=== PATIENT | female | born 1950 | race Caucasian/White ===

== ENCOUNTER → 2016-06-01 | Outpatient (CLI) | payer OTHER ==
[~2016-06-01] MED LIST: ALPR-411 PO; ANAS1TAB19 PO; CHOL100010 PO; CLB200 PO; Calcium PO; DOXE10CA PO; METO25TA3 PO; MULT-845 PO; MULT60CA PO; PROP20TA67 PO; UMEC1AER INH; ZOLP6.252 PO
[2016-06-01 15:01] LABS: ALT/SGPT 21 U/L (12-78); AST/SGOT 11 U/L (15-37); BLOOD UREA NITROGEN 19 mg/dl (7-18); BUN/CREATININE RATIO 17.7 (10-20); CALCIUM 9.6 mg/dl (8.5-10.1); CARBON DIOXIDE 25 mmol/L (21-32); CHLORIDE 107 mmol/L (98-107); GLUCOSE 125 mg/dl (70-99); POTASSIUM 3.9 mmol/L (3.5-5.1); SODIUM 143 mmol/L (136-145)
[2016-06-01 15:04] LABS: ALB/GLOB RATIO 1.2 (0.9-2); ALKALINE PHOSPHATASE 64 U/L (45-117)
--- NOTE | 2016-06-06 08:19 | CODING QUERY NO DIAGNOSIS ---
: 1950 TREATMENT RENDERED WITHOUT A DIAGNOSIS To promote full compliance with coding requirements relating to patient care, physician participation is requested in all cases of medical biller coder uncertainty. Please assist us with providing a diagnosis/symptom for the test(s) below: A diagnosis/symptom was not documented on your Order. A valid diagnosis/symptom is required to bill all insurances. Please remember that we are unable to code a diagnosis of rule out, probable, possible, questionable, or suspected. Tests that require a diagnosis: DOS: 06/01/16 * Comprehensive Metabolic Panel DIAGNOSIS: Provider Signature: Date: Thank you Sherlyn Mueller Health Information Management Once completed, please kindly fax back to [phone] For questions please call [phone]
== END | disposition home or self-care (01) ==
LOC: C.LAB1850 13:00
PROVIDERS: ATTEND Internal Medicine Hematology & Oncology
DX: C50.511 Malignant neoplasm of lower-outer quadrant of right female breast (principal)

== ENCOUNTER → 2016-10-26 | Outpatient (CLI) | payer OTHER ==
[2016-10-26 10:41] LABS: BASO % 0.3 %; BASO ABS # 0.03 K/uL (0-0.2); COMPLETE YES; EOS % 1.8 %; HEMATOCRIT 43.3 % (37-47); IG% 0.3 %; LYMPH % 11.7 %; LYMPH ABS # 1.34 K/uL (1.2-3.4); MEAN CELL VOLUME 90.8 fL (80-100); MEAN CORPUSCULAR HEMOGLOBIN 30.4 pg (25-34); MEAN CORPUSCULAR HGB CONC 33.5 g/dl (32-36); MEAN PLATELET VOLUME 9.9 fL (7.4-10.4); MONO % 5.5 %; NEUT % 80.4 %; PLATELET COUNT 203 K/uL (130-400); RED BLOOD COUNT 4.77 M/uL (4.2-5.4); WHITE BLOOD COUNT 11.45 K/uL (4.8-10.8)
[2016-10-26 10:49] LABS: URINE APPEARANCE CLEAR (CLEAR); URINE BILIRUBIN NEG (NEG); URINE COLOR DK YELLOW; URINE EPITHELIAL CELL AUTO >30 /lpf (0-5); URINE NITRITE NEG (NEG); URINE SPECIFIC GRAVITY 1.021 (1.000-1.030); UROBILINOGEN NEG (NEG)
[2016-10-26 10:51] LABS: ALT/SGPT 21 U/L (12-78); BLOOD UREA NITROGEN 12 mg/dl (7-18); BUN/CREATININE RATIO 12.7 (10-20); CARBON DIOXIDE 30 mmol/L (21-32); CHLORIDE 106 mmol/L (98-107); CHOLESTEROL 177 mg/dl (0-200); CREATININE 0.92 mg/dl (0.60-1.20); GLUCOSE 114 mg/dl (70-99); MANUAL MICROSCOPIC REQUIRED? NO; POTASSIUM 4.2 mmol/L (3.5-5.1); REVIEW REQ? YES; SODIUM 144 mmol/L (136-145); TRIGLYCERIDES 93 mg/dl (0-150); VERY LOW DENSITY LIPOPROT CALC 19 mg/dl
[2016-10-26 11:06] LABS: ALKALINE PHOSPHATASE 81 U/L (45-117); AST/SGOT 16 U/L (15-37); CALCIUM 9.1 mg/dl (8.5-10.1); CHOLESTEROL/HDL RATIO 3.8; HDL CHOLESTEROL 46 mg/dl; LDL CHOLESTEROL CALCULATED 112 mg/dl
--- NOTE | 2016-11-02 10:06 | CODING QUERY MEDICAL NECESSITY ---
CQSUPPORTING DIAGNOSIS NEEDED A supporting diagnosis is required for the test/procedure performed on this patient in order for us to be reimbursed by the patient's insurance. Please provide a supporting diagnosis for the following test/procedure listed below next to the test name along with your signature. *If there is no additional diagnosis for this patient that would support the following test/procedure please document that below next to the test/procedure. Test(s)/Procedure(s) that require a supporting diagnosis: DOS 10/26/16 BLOOD COUNT Provider Signature: Date: Thank you Reyna Hartmann [facility] Information Management Once completed, please kindly fax back to [phone] For questions please call [phone]
== END | disposition home or self-care (01) ==
LOC: C.LAB1850 08:57
PROVIDERS: ATTEND Internal Medicine Pulmonary Disease
DX: Z00.00 Encounter for general adult medical examination without abnormal findings (principal); J44.9 Chronic obstructive pulmonary disease, unspecified; C50.919 Malignant neoplasm of unspecified site of unspecified female breast

== ENCOUNTER → 2016-12-15 | Outpatient (CLI) | payer OTHER ==
[2016-12-15 13:07] VITALS: BP 158/67; PULSE 73; TEMP 36.7; O2SAT 93
--- NOTE | 2016-12-15 17:19 | Radiation Oncology Follow-Up ---
Radiation Oncology Follow-Up Date of Visit Dec 15, 2016. Reason For Visit Annual follow-up Radiation Completion Date 06/02/14 Diagnosis (1) Breast cancer Status: Resolved Onset Date: 04/09/2014 Histology Subtype: ductal Stage: l (A) Permanent Comment: Abnormal right breast mammogram Status post ultrasound-guided biopsy right breast 03/28/2014 revealing infiltrating ductal carcinoma Estrogen receptor positive, progesterone receptor positive, HER-2/rivera negative status post lumpectomy and sentinel lymph node biopsy 04/09/2014 showing invasive ductal carcinoma stage [id number] Oncotype DX score of 20 Status post completion of radiation therapy utilizing accelerated partial breast treatment completed 06/02/2014 received 3850 cGy Last Edited By: Danita De La Cruz on Dec 19, 2014 15:21 History of Present Illness Ms. Dominguez is a 66-year-old female whose mother was diagnosed with breast cancer in her late 60s.. She is therefore been followed closely with annual digital screening mammograms. On 04/2013 he had a benign mammogram with recommendation of repeat in one year. On on 02/03/2014 she underwent a repeat bilateral digital screening mammogram. This showed a developing 7 mm focal asymmetry with irregular margins in the lower outer posterior right breast near the fat-glandular interface. Further evaluation with spot compression views and ultrasound was recommended. There were stable post biopsy changes in the upper outer posterior right breast with ribbon-shaped metallic biopsy marker remaining in place. The patient had undergone a previous ultrasound core right breast biopsy at the 10 o'clock position on 07/28/2006. This revealed benign breast tissue. Case: [id number]. On 03/24/2014 patient underwent a unilateral right digital diagnostic mammogram and targeted right ultrasound. In the right lower outer quadrant there is an irregular mass with spiculated an indistinct margins which measure approximately 1.0 cm in size with no associated calcifications seen. Targeted ultrasound performed on the right lower outer quadrant at the 7 o'clock position of the right breast 4 cm from the nipple there was an irregular hypoechoic mass with non-circumscribed margins and posterior acoustic shadowing measuring 0.6 x 0.5 x 0.7 mm. It was felt to correlate well with the mammographic abnormality. Targeted ultrasound of the right axilla demonstrated morphologically normal right axillary lymph nodes without evidence of axillary lymphadenopathy. This was given a BI-RADS Category 5 highly suspicious for malignancy and a biopsy was recommended. On 03/28/2014 the patient underwent an ultrasound-guided biopsy of the right breast mass with biopsy marker placement. This tissue revealed an infiltrating ductal carcinoma [place] grade 1 of 3. The tumor measured up to 0.7 cm on core biopsy. There was no DCIS or LCIS identified. There was no lymphovascular invasion identified. Estrogen receptors were positive (90%, strong). Progesterone receptors were positive (> 90%, strong). HER-2/rivera overexpression was negative (1+). The cells were also tested for HER-2 /rivera amplification by FISH and were negative. Case: [id number]. Patient was seen by Dr. Joe Altamirano who discussed treatment options with the patient. She opted for breast conserving therapy. Therefore on 04/09/2014 patient underwent a right breast lumpectomy and right sentinel lymph node biopsy. The frozen section of the sentinel node was negative for metastatic carcinoma. The final diagnosis was also negative for metastatic carcinoma on routine sections and immunohistochemical stains for cytokeratin. The lumpectomy specimen revealed invasive ductal carcinoma. The tumor measured 0.8 x 0.8 x 0.6 cm. The histologic grade was a [place] rate 1 of 3. No DCIS or LCIS was identified. The margins were uninvolved by invasive carcinoma. Invasive carcinoma extended to within 1 mm of the medial margin and 2 mm of the lateral margin. En face superficial, deep, superior and inferior margins were all negative for DCIS and invasive carcinoma. Additional medial and lateral tissues were excised and both were negative on en face margins for DCIS or invasive carcinomas. All margins were therefore negative. Case: [id number]. The final pathologic stage is therefore pT1b pNo(i-) ER positive ID positive HER-2/rivera negative. The patient is recovering well from her surgery. She is scheduled to see Dr. Altamirano this afternoon for removal of her stitches. She is scheduled to see Dr. Abdulaziz Zabala for medical oncology evaluation of systemic therapy on Monday, April 21. We were asked to see the patient in referral for evaluation and discussion of the role of adjuvant radiation.[address] simulation was found to be a candidate for accelerated partial breast treatment. Treatment was completed in 06/02/2014 received 3850 cGy Interim History She's been doing well over this past year. She has noted no masses and no changes of the lingula. She's had no swelling of her arm. She is up-to-date on mammography. She does have an area of tenderness in the lower outer portion of the breast that is noted if she tries to lay on this side at night. Otherwise this does not cause any discomfort. She had a mammogram 04/05/2016. This was stable with no mammographic evidence of malignancy. BI-RADS Category 2. Allergies Coded Allergies: Penicillins (Verified Allergy, Severe, throat swelling, SOB, 12/23/14) Adhesives (Verified Allergy, Unknown, local skin irritation, 12/23/14) Lactose (Verified Allergy, Unknown, diarrhea, 12/23/14) Home Medications Scheduled Celecoxib (Celebrex *), 200 MG PO QPM Cholecalciferol (Vitamin D), 1,000 INTER.UNIT PO DAILY Metoprolol Succ (Toprol Xl) (Toprol-Xl), 12.5 MG PO BID Multiple Vitamins W/ Minerals (Centrum Silver Adult 50+), 800 MG PO evening Multiple Vitamins W/ Minerals (Preservision Areds 2), 1 CAP PO BID Propranolol (Inderal), 40 MG PO BID PRN Zolpidem Tartrate (Ambien Cr), 1 TAB PO HS [Calcium], 600 MG PO QAM Scheduled PRN Alprazolam (Xanax), 0.5 MG PO DAILY PRN for Anxiety Umeclidinium-Vilanterol (Anoro Ellipta 62.5-25 Mcg/INH), INH DAILY PRN for Shortness of Breath Review of Systems Gastrointestinal: Symptoms: WNL Oral: Symptoms: No Problems Other Oral Symptoms: Just getting over sinus infection with sore throat - on zpack Respiratory: Symptoms: WNL Respiratory Comments: Just getting over sinus infection with sore throat - on zpack Urinary: Symptoms: WNL Skin: Symptoms: No Problems Other Skin Symptoms: Right Breast is sore at times when sleeping on it Breast: Right Upper Arm Measurement: 30.6 Right Mid Arm Measurement: 24.8 Right Wrist Measurement: 16.4 Left Upper Arm Measurement: 31.0 Left Mid Arm Measurement: 23.5 Left Wrist Measurement: 16.4 Arm Dominence: Right Physical Exam Vital Signs Date Time Temp Pulse Resp B/P (MAP) Pulse Ox O2 Delivery O2 Flow Rate FiO2 12/15/16 13:07 36.7 73 16 158/67 93 Fatigue: None General Appearance: no apparent distress Eyes: normal inspection, EOMI ENT: normal ENT inspection, hearing grossly normal Neck: no adenopathy, thyroid normal Respiratory/Chest: lungs clear, no respiratory distress, no accessory muscle use Breast: Breast examination reveals well-healed incisions of the right breast. There are no masses or tenderness no axillary adenopathy. There are fibrous changes in the area of the incision. There is slight telangiectasia. Using the [place] score cosmesis she has a good outcome. The left breast showed no masses or tenderness and no axillary adenopathy. Cardiovascular: regular rate, rhythm, no gallop, no murmur Neurologic/Psychiatric: no motor/sensory deficits, alert, normal mood/affect Skin: warm/dry Laboratory Studies Test 10/26/16 09:01 12/15/16 13:41 White Blood Count 11.45 K/uL (4.8-10.8) 10.08 K/uL (4.8-10.8) Red Blood Count 4.77 M/uL (4.2-5.4) 4.62 M/uL (4.2-5.4) Hemoglobin 14.5 g/dL (12.0-16.0) 14.3 g/dL (12.0-16.0) Hematocrit 43.3 % (37-47) 41.5 % (37-47) Mean Corpuscular Volume 90.8 fL (80-100) 89.8 fL (80-100) Mean Corpuscular Hemoglobin 30.4 pg (25-34) 31.0 pg (25-34) Mean Corpuscular Hemoglobin Concent 33.5 g/dl (32-36) 34.5 g/dl (32-36) Platelet Count 203 K/uL (130-400) 199 K/uL (130-400) Mean Platelet Volume 9.9 fL (7.4-10.4) 9.3 fL (7.4-10.4) Neutrophils (%) (Auto) 80.4 % 70.0 % Lymphocytes (%) (Auto) 11.7 % 20.1 % Monocytes (%) (Auto) 5.5 % 5.8 % Eosinophils (%) (Auto) 1.8 % 3.2 % Basophils (%) (Auto) 0.3 % 0.4 % Neutrophils # (Auto) 9.21 K/uL (1.4-6.5) 7.06 K/uL (1.4-6.5) Lymphocytes # (Auto) 1.34 K/uL (1.2-3.4) 2.03 K/uL (1.2-3.4) Monocytes # (Auto) 0.63 K/uL (0.11-0.59) 0.58 K/uL (0.11-0.59) Eosinophils # (Auto) 0.21 K/uL (0-0.5) 0.32 K/uL (0-0.5) Basophils # (Auto) 0.03 K/uL (0-0.2) 0.04 K/uL (0-0.2) RDW Standard Deviation 41.8 fL (36.4-46.3) 41.3 fL (36.4-46.3) RDW Coefficient of Variation 12.6 % (11.5-14.5) 12.7 % (11.5-14.5) Immature Granulocyte % (Auto) 0.3 % 0.5 % Immature Granulocyte # (Auto) 0.03 K/uL (0.00-0.02) 0.05 K/uL (0.00-0.02) Urine Color DK YELLOW Urine Appearance CLEAR (CLEAR) Urine pH 8.0 (4.5-7.5) Urine Specific [place] 1.021 (1.000-1.030) Urine Protein NEG (NEG) Urine Glucose (UA) NEG (NEG) Urine Ketones TRACE (NEG) Urine Occult Blood NEG (NEG) Urine Nitrite NEG (NEG) Urine Bilirubin NEG (NEG) Urine Urobilinogen NEG (NEG) Urine Leukocyte Esterase TRACE (NEG) Urine WBC (Auto) 1-5 /hpf (0-5) Urine RBC (Auto) 10-30 /hpf (0-4) Urine Hyaline Casts (Auto) 5-10 /lpf (0-5) Urine Epithelial Cells (Auto) >30 /lpf (0-5) Urine Bacteria (Auto) NEG (NEG) Urine Renal Epithelial Cells 0-5 /lpf (0-5) Sodium Level 144 mmol/L (136-145) 141 mmol/L (136-145) Potassium Level 4.2 mmol/L (3.5-5.1) 3.7 mmol/L (3.5-5.1) Chloride Level 106 mmol/L (98-107) 103 mmol/L (98-107) Carbon Dioxide Level 30 mmol/L (21-32) 30 mmol/L (21-32) Anion Gap 8.0 mmol/L (3-11) 8.0 mmol/L (3-11) Blood Urea Nitrogen 12 mg/dl (7-18) 12 mg/dl (7-18) Creatinine 0.92 mg/dl (0.60-1.20) 1.00 mg/dl (0.60-1.20) Estimated GFR () 75.2 67.5 Estimated GFR (Non- 64.9 58.3 BUN/Creatinine Ratio 12.7 (10-20) 12.3 (10-20) Random Glucose 114 mg/dl (70-99) 120 mg/dl (70-99) Calcium Level 9.1 mg/dl (8.5-10.1) 9.3 mg/dl (8.5-10.1) Total Bilirubin 0.7 mg/dl (0.2-1) 0.4 mg/dl (0.2-1) Aspartate Amino Transferase (AST) 16 U/L (15-37) 15 U/L (15-37) Alanine Aminotransferase (ALT) 21 U/L (12-78) 19 U/L (12-78) Alkaline Phosphatase 81 U/L (45-117) 71 U/L (45-117) Total Protein 7.2 gm/dl (6.4-8.2) 7.1 gm/dl (6.4-8.2) Albumin 3.6 gm/dl (3.4-5.0) 3.5 gm/dl (3.4-5.0) Globulin 3.6 gm/dl (2.5-4.0) 3.6 gm/dl (2.5-4.0) Albumin/Globulin Ratio 1.0 (0.9-2) 1.0 (0.9-2) Triglycerides Level 93 mg/dl (0-150) Cholesterol Level 177 mg/dl (0-200) HDL Cholesterol 46 mg/dl LDL Cholesterol, Calculated 112 mg/dl VLDL Cholesterol, Calculated 19 mg/dl Cholesterol/HDL Ratio 3.8 Thyroid Stimulating Hormone (TSH) 1.100 uIu/ml (0.300-4.500) Est Creatinine Clear Calc Drug Dose 50.6 ml/min 25-Hydroxy Vitamin D Total 39.0 ng/ml (30-100) Additional Studies Patient: TIGIST DOMINGUE[facility] Rec: [id number] Address1: [address] Address2: Acct ID: [id number] Date: 1950 Sex: F Ref Phy: Att Phy: Viraj Peck M.D. Debbie Phy: iVraj Ryan M.D. Inter Phy: Rylie Khan MD [facility] Zip: [place] [address] SC: C.MAMM Report #: [id number] Spare Fixer: JIE Diagnosis: 12 MONTH F/U HX BREAST CA Service Date: 04/05/16 MNE: [id number] Ordering Dr: Viraj Peck M.D. CC: Viraj Peck M.D. CONF: DICTATED BY: Rylie Khan MD MAMMOGRAPHY REPORT BILATERAL DIGITAL DIAGNOSTIC MAMMOGRAM TOMOSYNTHESIS: 04/05/2016 CLINICAL HISTORY: Annual bilateral mammography. Personal history of right breast cancer status post lumpectomy and radiation therapy in 2013. TECHNIQUE: Bilateral CC and MLO 2-D digital and tomosynthesis images and spot magnification right CC and ML views were performed. COMPARISON: Comparison is made to exams dated: 03/30/2015 mammogram, 10/01/2014 ultrasound, 10/01/2014 mammogram, 04/09/2014 specimen, 04/09/2014 localization, and 02/03/2014 mammogram - [facility]. BREAST COMPOSITION: The tissue of both breasts is heterogeneously dense, which may obscure small masses. FINDINGS: There is expected architectural distortion with associated surgical clips in the lower outer posterior right breast, at the site of prior lumpectomy. A stable ribbon shaped metallic biopsy marker is also seen in the right upper outer quadrant. There is a stable lobulated oval 5 mm mass in the upper outer posterior left breast. Benign coarse calcifications within the left breast. No new suspicious mass, architectural distortion or cluster of suspicious microcalcifications is seen. IMPRESSION: IMPRESSION: ACR BI-RADS CATEGORY 2: BENIGN Stable bilateral mammograms, including postsurgical/posttreatment changes within the right breast. No mammographic evidence of malignancy bilaterally. Recommend bilateral diagnostic mammograms in one year with repeat spot magnification views of the right breast given the personal history of right breast cancer. These results and recommendations were discussed with the patient at the time of the exam. Approximately 10% of breast cancers are not detected with mammography. A negative mammographic report should not delay biopsy if a clinically suggestive mass is present. Rylie Khan M.D. ay/:04/05/2016 12:33:30 [place] Worker Helper: Magdalena MCKEON)(Arely), [facility] letter sent: Normal 1/2 BI-RADS Code: ACR BI-RADS Category 2: Benign Dictated by: Rylie Khan MD Signed by: Rylie Khan MD Assessment & Plan Plan: Continue mammography as scheduled. We discussed the area of discomfort is fibrous tissue from radiation and surgery. We discussed smoking cessation. She is going to continue to try to wean off of cigarettes. He states she only smokes 3 cigarettes per day when vacationing in [place]. She smokes a half pack per day well at home. She'll continue to try to cut down and stopped smoking. We asked her to return to our office in 1 year. She may call if she has any questions or concerns in the interim. Total Time In Follow-Up I spent 20 minutes speaking to the patient and performing examination. I spent 15 minutes reviewing information in completing this note. Copy To Ham Bronson D.O.; Viraj Ryan M.D. Problem Qualifiers (1) Breast cancer: Breast location: lower outer quadrant of breast Estrogen receptor status: positive Patient sex: female Laterality: right Qualified Codes: C50.511 - Malignant neoplasm of lower-outer quadrant of right female breast; Z17.0 - Estrogen receptor positive status [ER+]
== END | disposition home or self-care (01) ==
LOC: C.ONC 12:47
PROVIDERS: ATTEND Physician Assistant Medical
DX: Z08 Encounter for follow-up examination after completed treatment for malignant neoplasm (principal); Z92.3 Personal history of irradiation; Z85.3 Personal history of malignant neoplasm of breast; M81.0 Age-related osteoporosis without current pathological fracture

== ENCOUNTER → 2017-04-06 | Outpatient (CLI) | payer OTHER ==
[~2017-04-06] MED LIST changes: -ANAS1TAB19 PO; -DOXE10CA PO
--- NOTE | 2017-04-06 15:30 | MAMMOGRAPHY REPORT ---
BILATERAL DIGITAL SCREENING MAMMOGRAM TOMOSYNTHESIS WITH CAD: 04/06/2017 CLINICAL HISTORY: Asymptomatic. Personal history of breast cancer. TECHNIQUE: Breast tomosynthesis in addition to standard 2D mammography was performed. Current study was also evaluated with a Computer Aided Detection (CAD) system. COMPARISON: Comparison is made to exams dated: 04/05/2016 mammogram, 03/30/2015 mammogram, 10/01/2014 ultrasound, 10/01/2014 mammogram, 04/09/2014 specimen, and 04/09/2014 localization - [facility]. BREAST COMPOSITION: The tissue of both breasts is heterogeneously dense, which may obscure small mas ses. FINDINGS: No suspicious masses, calcifications, or areas of architectural distortion are noted in ei ther breast. There has been no significant interval change compared to prior exams. There are stable postsurgical changes in the right breast from prior lumpectomy. A biopsy marker clip is also again noted in the right upper outer quadrant. IMPRESSION: ACR BI-RADS CATEGORY 2: BENIGN There is no mammographic evidence of malignancy. A 1 year screening mammogram is recommended. The pa tient will receive written notification of the results. Approximately 10% of breast cancers are not detected with mammography. A negative mammographic report should not delay biopsy if a clinically suggestive mass is present. Florence Lopez M.D. /:04/06/2017 14:24:09 [employer] Director: Shannan MCKEON)(Arely), [facility] letter sent: Normal 1/2 BI-RADS Code: ACR BI-RADS Category 2: Benign
== END | disposition home or self-care (01) ==
LOC: C.MAMM 11:03
PROVIDERS: ATTEND Obstetrics & Gynecology
DX: Z12.31 Encounter for screening mammogram for malignant neoplasm of breast (principal)

== ENCOUNTER → 2017-06-02 | Outpatient (CLI) | payer OTHER ==
[2017-06-02 12:14] LABS: BASO % 0.3 %; BASO ABS # 0.03 K/uL (0-0.2); EOS % 1.5 %; EOS ABS # 0.15 K/uL (0-0.5); HEMATOCRIT 42.7 % (37-47); HEMOGLOBIN 14.8 g/dL (12.0-16.0); IG# 0.03 K/uL (0.00-0.02); LYMPH % 18.8 %; LYMPH ABS # 1.88 K/uL (1.2-3.4); MEAN CELL VOLUME 90.9 fL (80-100); MEAN CORPUSCULAR HEMOGLOBIN 31.5 pg (25-34); MEAN CORPUSCULAR HGB CONC 34.7 g/dl (32-36); MONO % 4.9 %; MONO ABS # 0.49 K/uL (0.11-0.59); NEUT % 74.2 %; PLATELET COUNT 194 K/uL (130-400); RED CELL DISTRIBUTION WIDTH CV 12.9 % (11.5-14.5); RED CELL DISTRIBUTION WIDTH SD 42.9 fL (36.4-46.3); WHITE BLOOD COUNT 9.98 K/uL (4.8-10.8)
[2017-06-02 12:29] LABS: ALBUMIN 3.4 gm/dl (3.4-5.0); ALT/SGPT 19 U/L (12-78); AST/SGOT 12 U/L (15-37); BLOOD UREA NITROGEN 16 mg/dl (7-18); CARBON DIOXIDE 33 mmol/L (21-32); CREATININE 0.88 mg/dl (0.60-1.20); GLUCOSE 121 mg/dl (70-99); POTASSIUM 3.9 mmol/L (3.5-5.1); SODIUM 140 mmol/L (136-145)
[2017-06-02 12:31] LABS: ALKALINE PHOSPHATASE 63 U/L (45-117); TOTAL PROTEIN 6.6 gm/dl (6.4-8.2)
== END | disposition home or self-care (01) ==
LOC: C.LAB1850 10:36
PROVIDERS: ATTEND Internal Medicine Hematology & Oncology
DX: C50.511 Malignant neoplasm of lower-outer quadrant of right female breast (principal)

== ENCOUNTER → 2017-12-08 | Outpatient (CLI) | payer OTHER ==
[~2017-12-08] MED LIST changes: +BROM0.07 OPR; +CHOL1000 PO; -CHOL100010 PO; +IBUP-1050 PO; +MURO OPR; +OFLO0.3S OPR; +PRED1SUS3 OPR; -ZOLP6.252 PO; +ZOLP6.2529 PO
[2017-12-08 12:13] LABS: HEMATOCRIT 40.4 % (37-47); MEAN CELL VOLUME 89.4 fL (80-100); MEAN CORPUSCULAR HGB CONC 34.7 g/dl (32-36); MEAN PLATELET VOLUME 10.3 fL (7.4-10.4); PLATELET COUNT 203 K/uL (130-400); RED CELL DISTRIBUTION WIDTH CV 12.8 % (11.5-14.5); RED CELL DISTRIBUTION WIDTH SD 41.3 fL (36.4-46.3); WHITE BLOOD COUNT 9.77 K/uL (4.8-10.8)
[2017-12-08 12:35] LABS: BLOOD UREA NITROGEN 15 mg/dl (7-18); CALCIUM 8.6 mg/dl (8.5-10.1); CARBON DIOXIDE 28 mmol/L (21-32); CREATININE 0.87 mg/dl (0.60-1.20); GLUCOSE 95 mg/dl (70-99); SODIUM 142 mmol/L (136-145)
== END | disposition home or self-care (01) ==
LOC: C.LAB1850 10:04
PROVIDERS: ATTEND Internal Medicine Cardiovascular Disease
DX: I10 Essential (primary) hypertension (principal); R06.02 Shortness of breath; R94.39 Abnormal result of other cardiovascular function study

== ENCOUNTER → 2017-12-19 | Outpatient (CLI) | payer OTHER ==
[~2017-12-19] MED LIST changes: +ASPI-435 PO; +CLB/200 PO; +LPT40 PO; +TRAM-10 PO; +TRIA37.5 PO; +[UNRECOGNIZED DRUG - CODE] PO
--- NOTE | 2017-12-19 10:18 | DIAGNOSTIC IMAGING REPORT ---
L FOREARM 2 VIEWS ROUTINE CLINICAL HISTORY: M79.639 Forearm pain [id number] COMPARISON: None. DISCUSSION: The bones are osteopenic. No fractures are visualized. IMPRESSION: No fractures identified. Electronically signed by: Booker Leonard M.D. 12/19/2017 10:16 AM Dictated Date/Time: 12/19/2017 10:15 AM
--- NOTE | 2017-12-19 10:18 | DIAGNOSTIC IMAGING REPORT ---
L WRIST MIN 3 VIEWS ROUTINE CLINICAL HISTORY: M25.532 Wrist pain, acute, le COMPARISON: None. DISCUSSION: The bones are mildly osteopenic. No fractures or dislocations are visualized. There are mild degenerative changes the level the first carpal metacarpal joint. IMPRESSION: No fractures or dislocations identified. Electronically signed by: Booker Leonard M.D. 12/19/2017 10:17 AM Dictated Date/Time: 12/19/2017 10:16 AM
== END | disposition home or self-care (01) ==
LOC: C.RAD1850 09:43
PROVIDERS: ATTEND Physician Assistant Medical
DX: M79.632 Pain in left forearm (principal)

== ENCOUNTER → 2017-12-20 | Outpatient (CLI) | payer OTHER ==
[2017-12-20 13:12] VITALS: BP 115/72; PULSE 75; TEMP 36.9; O2SAT 93
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
== END | disposition home or self-care (01) ==
LOC: C.ONC 12:58
PROVIDERS: ATTEND Physician Assistant Medical
DX: Z08 Encounter for follow-up examination after completed treatment for malignant neoplasm (principal); Z92.3 Personal history of irradiation; Z85.3 Personal history of malignant neoplasm of breast

== ENCOUNTER → 2017-12-25 | Day surgery (SDC) | payer OTHER ==
[~2017-12-25] VITALS: Ht 167.6 cm; Wt 71.0 kg
[~2017-12-25] MED LIST changes: +ACETAMINOPHEN 325 MG TAB PO PRN; +ASPIRIN 325 MG ECTAB PO ONE; -CLB200 PO; +FENTANYL CITRATE INJ 50 MCG/1 ML 2 ML VIAL ONE; +HEPARIN SOD (PORCINE) 1000 UNIT/ML 10 ML VIAL ONE; +MIDAZOLAM HCL 1 MG/ML 2ML VIAL ONE; +NITROGLYCERIN/D5W 100MCG/ML 20ML SYR ONE; +NiCARDipine HCL INJ 2.5 MG/ML 10 ML AMP ONE; +ONDANSETRON INJ 2 MG/ML 2 ML VIAL IV PRN; +SODIUM CHLORIDE 0.9% 1000ML 1,000 ML IV SCH; +SODIUM CHLORIDE 0.9% 1000ML 250 ML IV PRN
[2017-12-25 07:18] VITALS: BP 146/78; PULSE 73; TEMP 36.6; O2SAT 96; Ht 167.6 cm; Wt 71.0 kg
--- NOTE | 2017-12-25 07:33 | History & Physical Bridge Note ---
H&P Re-Evaluation Bridge Note: I have examined the patient, reviewed the History & Physical and in the interval since the performance of the History & Physical I have noted the following changes of clinical significance: No changes noted
--- NOTE | 2017-12-25 07:36 | Pre Sedation Assessment ---
Pre Sedation Assessment General Date of Sedation: Dec 25, 2017. Review Cardiovascular: regular rate, rhythm Lungs: lungs clear Pre-Sedation Airway Assessment Smoking Status: Current Every Day Smoker Mallampati Classification: Class II ASA Classification: Class III NPO Status Date of Last Intake of Fluids: Dec 24, 2017 Time of Last Intake of Fluids: 21:00 Date of Last Intake of Solids: Dec 24, 2017 Time of Last Intake of Solids: 21:00 Procedure Planning Contraindications for Sedation: None Current Medications Reviewed: Yes Notes The planned sedation has been discussed with the patient. Informed Consent was obtained. I have identified the patient, determined the appropriateness of sedation and have assessed the patient immediately prior to the procedure. All medicine(s) and interventions are by my order.
--- NOTE | 2017-12-25 08:55 | Cardiac Catheterization ---
Procedure Note Procedure Date Dec 25, 2017. Pre-Procedure Diagnosis Positive Stress Test AUC Score 7 Post-Procedure Diagnosis Mild CAD, Normal Intracardiac Pressures Procedure(s) Performed Coronary Angiography, Left Heart Cath Arch Support Technician Dr. Overton Bulk Plant Agent(s) Naveen Estimated Blood Loss < 25 ml Medication(s) Aspirin, Fentanyl, Heparin, Nicardipine, Nitroglycerin, Versed, Lidocaine 1% Summary of Findings Coronary angiography: 1. Left main coronary artery: The LMCA is without significant CAD. 2. Left anterior descending: The LAD is a large caliber vessel proximally to the midportion. Early mid LAD 40%. Distal LAD is small in caliber and extends to the apex. Medium caliber D1. Small D2. 3. Circumflex: The circumflex is a large caliber vessel. There is a very small high OM1, large OM2, and large OM3. No significant CAD within the marginal vessels. Distal circumflex 30%. 4. Right coronary artery: The RCA is large and dominant. Proximal RCA 30-40%. Large PDA and large PL branch without significant CAD. Left heart catheterization: 1. Left ventriculography was not performed. 2. No aortic stenosis. 3. Normal LVEDP; 10 mmHg. Sedation start time: 7:59 a.m. Sedation end time: 8:23 a.m. Procedural details: 1. Coronary angiography was performed via the right radial artery without known complication. There was spasm within the right radial artery which did cause some discomfort. She was given sublingual nitroglycerin 0.4 mg x1 as well as intra-arterial nicardipine. Spasm occurred while performing angiography of the left system with six Nauruan JL 3.5 diagnostic catheter. A 4 Nauruan JR4 diagnostic catheter was easily passed through the artery is to complete angiography of the RCA. Impression: 1. Mild nonobstructive CAD involving LAD, circumflex, and RCA. 2. Normal LVEDP. 3. No aortic stenosis. Plan: 1. Optimize medical therapy/risk factor modification. Hemodynamics Rest Ao: 159/50 Final Ao: 128/53 LV: 113/0/10 Recommendations Medical therapy and/or Counseling Specimens None Radiation Exposure (mGy) 834 mGy. Fluoro time 2.2 min. Contrast (mls) 30ml Optiray Procedural Complication(s) None Disposition Gravure Press Operator Holding/Recovery ACC Data Cardiac Status Clinical evaluation leading to the procedure CAD Presntation: Positive Stress Test Anginal Classification: No symptoms Heart Failure: No Cardiogenic Shock w/in 24Hrs: No Cardiac Arrest w/in 24Hrs: No Imaging studies past 6 months: No Stress studies past 6 months: Yes Standard Exercise Stress Test: Yes - Negative Stress Echocardiogram: Yes - Positive, Risk/Extent of Ischemia (Intermediate) Stress Testing w/SPECT MPI: No Cardiac CTA: No Coronary Anatomy Dominant: Right Left Main (% Stenosis): Normal LAD (% Stenosis): Mid (40%) D1 (% Stenosis): Normal D2 (% Stenosis): Normal Circumflex (% Stenosis): Distal (30%) OM1 (% Stenosis): Normal OM2 (% Stenosis): Normal OM3 (% Stenosis): Normal RCA (% Stenosis): Proximal (30-40%) R PDA (% Stenosis): Normal R PL1 (% Stenosis): Normal Left Ventricular Angiography EF (%): n/a Diagnostic Physician's Name: Mynor Overton MD Status: Elective Closure Device Percutaneous Entry Location: Radial Closure Device: Radial Band Recommendations: Medical therapy and/or Counseling
--- NOTE | 2017-12-25 08:55 | Post Sedation Assessment ---
Post Sedation Assessment General Date of Sedation Dec 25, 2017. Vital Signs: Vital Signs Past 12 Hours Date Time Temp Pulse Resp B/P (MAP) Pulse Ox O2 Delivery O2 Flow Rate FiO2 12/25/17 07:18 36.6 73 14 146/78 (100) 96 Room Air Post Procedure Recovery Score Activity: (2) Moves 4 extremities * Respiration: (2) Deep breath/cough Circulation: (2) +/-20% PreAnes Value Consciousness: (2) Fully Awake Oxygen Saturation: (2) > 92% On Room Air Post Anesthesia Score: 10 Discharge Sedation Level of Care: Fast Track Phase II Post Sedation Plan On clinical assessment, the patient appears to have tolerated the sedation without complications. Patient is recovering as anticipated. Patient will continue to be monitored by nursing and may be discharged when sedation discharge criteria are met per below protocol. Upon Completions of procedure and additional 15 minutes continue every 5 minute vital signs and the P.A.R. score; then discharge to a Phase I or Fast Track to Phase II per the following guidelines: * Discharge Patient to appropriate Phase II area if PAR is 8 or greater or return to pre- procedure baseline. The post - procedure orders will be as directed. * If PAR score is less than 8 or not return to pre-procedure baseline then patient will follow Phase I monitoring till PAR is reached for Phase II. The Phase I may be done in procedure room or may call to secure a Phase I area. * If naloxone or flumazenil are used for reversal, hold in Phase I for an additional 60 -120 minutes before discharge to Phase II. Please call the Sedation Physician to re-evaluate and complete post-note for discharge to Phase II area. Do NOT discharge from procedure sedation or Phase 1 until post- sedation evaluation note is complete by procedure /sedation MD Sedation Discharge Instructions to be given to the patient at discharge to home.
--- NOTE | 2017-12-25 09:02 | Discharge Instructions ---
Discharge Instructions Date of Service Dec 25, 2017. Visit Reason for Visit: Cardiac catheterization Discharge Discharge Diagnosis / Problem: Nonobstructive coronary artery disease. Discharge Goals Goal(s): Therapeutic intervention Medications Restart Stopped Medication(s): Resume your usual medications. New medication is atorvastatin 40 mg once daily at bedtime. Activity Recommendations Activity Limitations: per Instructions/Follow-up section Anesthesia . Post Anesthesia Instructions: If you have had General Anesthesia or IV Sedation: * Do not drive today. * Resume driving when surgeon permits. * Do not make important decisions or sign legal documents today. * Call surgeon for: 1. Temperature elevations greater than 101 degrees F. 2. Uncontrollable pain. 3. Excessive bleeding. 4. Persistent nausea and vomiting. 5. Medication intolerance (nausea, vomiting or rash). * For nausea and vomiting use only clear liquids such as: tea, soda, bouillon until nausea subsides, then gradually increase diet as tolerated. * If you have any concerns or questions, call your surgeon's office. If physician is unavailable and it is an emergency, call 911 or go to the nearest emergency room. . Instructions / Follow-Up Instructions / Follow-Up ACTIVITY RECOMMENDATIONS: Excess manipulation of the wrist should be avoided for the next 24-48 hours. * No lifting over 2 pounds (approximately a 1/2 gallon of milk) with the utilized arm for 24 hours. * No strenuous activity such as bowling or tennis for 3 days. * Keep the site of the procedure covered with a bandage for 24 hours. *You may shower the day after the procedure. Do not take a tub bath or submerge the puncture site in water for the next 3 days. *Do not operate any motorized equipment for 3 days. SPECIAL CARE INSTRUCTIONS: The site may be slightly bruised and sore following your procedure. Should any of the following occur, contact the Dr. who performed your procedure. 1. Redness/inflammation, swelling, chills, or fever, or colored drainage at procedure site within 3-7 days after your procedure. 2. Coldness, discoloration, ongoing numbness, severe pain, or swelling. Expect mild tingling of hand and tenderness at the puncture site for up to three days. If this persists beyond three days, or other symptoms develop, notify the Dr. who performed your procedure. BLEEDING: If the procedure site on your wrist begins to bleed, do not panic 1. Place 1 or 2 fingers firmly just slightly above the insertion site to stop the bleeding. You may be able to feel your pulse as you hold pressure. 2. Lift your finger after 5 minutes to see if the bleeding has stopped. 3. Once the bleeding has stopped, gently wipe the wrist area clean with a bandage. * If the bleeding from your wrist does not stop after 10 minutes, or if there is a large amount of bleeding or spurting, call 911 (do not drive yourself to the hospital). SKIN IRRITATION: * You may experience some redness and/or swelling in the area where radiation was administered. If any skin irritation occurs, please contact your family physician. FOLLOW UP VISIT: Keep any scheduled doctor appointments. Diet Recommendations Recommended Home Diet: low cholesterol Procedures Procedures Performed: 1. Coronary angiography 2. Left heart catheterization Pending Studies Studies pending at discharge: no Medical Emergencies . Who to Call and When: Medical Emergencies: If at any time you feel your situation is an emergency, please call 911 immediately. . Non-Emergent Contact Non-Emergency issues call your: Primary Care Provider, Cryolite Recovery Operator, Fruit Checker . . "Provider Documentation" section prepared by Mynor Steel. .
[2017-12-25 11:00] VITALS: BP 128/62; PULSE 70; O2SAT 98
== END | disposition home or self-care (01) ==
LOC: C.CATH 07:02
PROVIDERS: ATTEND Internal Medicine Cardiovascular Disease
DX: I25.10 Atherosclerotic heart disease of native coronary artery without angina pectoris (principal); F17.200 Nicotine dependence, unspecified, uncomplicated; I49.3 Ventricular premature depolarization; I10 Essential (primary) hypertension; J44.9 Chronic obstructive pulmonary disease, unspecified; K21.9 Gastro-esophageal reflux disease without esophagitis; H35.30 Unspecified macular degeneration; Z85.828 Personal history of other malignant neoplasm of skin; Z87.440 Personal history of urinary (tract) infections